=== PATIENT | female | born 1975 | race Two or more races ===

== ENCOUNTER 2021-06-11 14:33 | Emergency (ER) | payer SELFPAY ==
[2021-06-11] MEDS ORDERED: Sodium Chloride 0.9% 1,000 ML IV ONE (14:51)
[2021-06-11] MEDS ORDERED: Ondansetron 4 MG/2 ML SDV IVPUSH ONE (14:52)
[2021-06-11] MEDS ORDERED: Meclizine 25 MG Tab PO ONE (14:52)
--- NOTE | 2021-06-11 14:53 | EDM.PDOC ---
ED HPI GENERAL MEDICAL PROBLEM - General Chief Complaint: General Stated Complaint: VOMITING, DIZZY Time Seen by Provider: 06/11/21 14:34 Source of Information: Reports: Patient History Limitations: Reports: No Limitations - History of Present Illness INITIAL COMMENTS - FREE TEXT/NARRATIVE: HISTORY AND PHYSICAL: History of present illness: Patient is a 45-year-old female who presents to the emergency room with concern of sudden onset dizziness that occurred approximately 1 hour prior to travel to the emergency room. Patient is primarily speaking and did offer Martti translation, however, she prefers her friend who is at bedside for translation. Patient was cooking when she began feeling dizzy and like the room was spinning. Patient states that she then became nauseous and vomited twice. Patient states she has improvement of her symptoms with her eyes closed and has had a hard time walking due to the dizziness and feeling like the ground is moving underneath her. Patient denies any health history and states this has never occurred before. Patient denies any head injury or loss of consciousness. Patient denies any other symptoms or concerns. Patient denies fever, chills, chest pain, shortness of breath, or cough. Denies headache, neck stiff ness, change in vision, syncope, or near syncope. Denies nausea, vomiting, abdominal pain, diarrhea, constipation, or dysuria. Has not noted any blood in urine or stool. Patient has been eating and drinking appropriately. Review of systems: As per history of present illness and below otherwise all systems reviewed and negative. Past medical history: As per history of present illness and as reviewed below otherwise noncontributory. Surgical history: As per history of present illness and as reviewed below otherwise noncontributory. Social history: See social history for further information Family history: As per history of present illness and as reviewed below otherwise noncontributory. Physical exam: General: Patient is alert, oriented, and in no acute distress. Patient laying comfortably on exam table. Vitals stable and reviewed by me. HEENT: Patient does not have any nystagmus on exam, head impulse test is abnormal to the right, and test of skew shows no skew deviation. Otherwise, atraumatic, normocephalic, pupils equal and reactive bilaterally, negative for conjunctival pallor or scleral icterus, mucous membranes moist, TMs normal bilaterally, throat clear, neck supple, nontender, trachea midline. No drooling or trismus noted. No meningeal signs. No hot potato voice noted. Lungs: Clear to auscultation, breath sounds equal bilaterally, chest nontender. Heart: S1S2, regular rate and rhythm without overt murmur Abdomen: Soft, nondistended, nontender. Negative for masses or hepatosplenomegaly. Negative for costovertebral tenderness. Pelvis: Stable nontender. Genitourinary: Deferred. Rectal: Deferred. Skin: Intact, warm, dry. No lesions or rashes noted. Extremities: Atraumatic, negative for cords or calf pain. Neurovascular unremarkable. Neuro: Awake, alert, oriented. Cranial nerves II through XII unremarkable. Cerebellum unremarkable. Motor and sensory unremarkable throughout. Exam nonfocal. Notes: Dr. Varela verbally involved in patient care. Patient is a 45-year-old female who presents emergency room today with concern of sudden onset dizziness and feeling like the room is spinning 1 hour prior to arrival to the emergency room associated with nausea and vomiting. Upon arrival to the ED, patient is vitally stable and laying comfortably on exam. However, patient is unable to sit up or walk without assistance due to falling over. On exam, patient does not have any notable nystagmus, head impulse test is abnormal to the right, and test of skew shows no deviation although do feel that physical exam was limited due to patient cooperation and non diagnostic. Will obtain cardiac evaluation, Ang head/neck w contrast. See Dr. Edouard dictation for specific EKg interpretation. However, NSR without STEMI. CBC shows a mild leukocytosis of 11.1 with remainder of mild derangements of CBC unremarkable. CMP shows an isolated elevation of BUN at 19, glucose elevation of 145, otherwise mild derangements of CMP are unremarkable. Troponin is negative. TSH is within normal limits. hCG negative. Urinalysis is clear of infection. Chest x-ray shows no acute cardiopulmonary findings. Angiography head and neck shows no intracranial proximal large vessel occlusion or flow limiting luminal stenosis. Patent cervical arterial vasculature without hemodynamic significant luminal stenosis. Stenosis of bilateral distal transverse sinuses which may be seen in the setting of underlying idiopathic intracranial hypertension. If clinically indicated, lumbar puncture with opening pressure could be performed and if the patient has symptoms related to idiopathic intracranial hypertension (papilledema/double vision, headaches, pulsatile tinnitus) consult with neuro interventional services can be arranged at their facility. Upon reevaluation of patient, she remains vitally stable and has complete resolution of her dizziness/vertigo today in the emergency room with therapeutics. Upon reevaluation of patient, she is able to get up and walk around without difficulty or assistance and is well-appearing. I did discuss all findings/incidental findings today of imaging with patient and she declines any visual changes, headaches, pulsatile tinnitus, or any additional symptoms of idiopathic intracranial hypertension. I did perform a bedside visual acuity which is intact with visual poon intact and do not appreciate papilledema on exam. Patient does note that she did have some ear pressure when her symptoms first began in her right ear. Her TMs are clear on exam without sign of infection. She does not express any continuing ear pressure. Given patient's improvement/resolution of vertigo symptoms with meclizine today in the emergency room, patient's HINTS test reassuring for peripheral vertigo, and predromal ear pressure, patient symptoms more related to likely benign vertigo/possible labyrinthitis. I did discuss this with Dr. Burgess who agreeable with patient disposition. Strict return precautions thoroughly discussed with patient. Discussed importance for follow-up with her primary care provider and to receive a formal eye exam with an executive director of marketing. Voices understanding and is agreeable to plan of care. Denies any further questions or concerns at this time. Diagnostics: EKG, CBC, CMP, UA, serum hcg, CXR, Trop, Mg, TSH, Ang head/neck Therapeutics: NS, Zofran, Meclizine Prescription: Meclizine Impression: Vertigo Plan: 1. Take medication as prescribed. 2. Follow-up and establish care with a primary care provider as well as receive a formal eye exam by an executive director of marketing as discussed. The numbers have been provided above for you to call and establish an appointment time. 3. Return to the ED as needed and as discussed. Definitive disposition and diagnosis as appropriate pending reevaluation and review of above. - Related Data Allergies Allergy/AdvReac Type Severity Reaction Status Date / Time No Known Allergies Allergy Verified 06/11/21 14:39 Home Meds: Home Meds Meclizine [Antivert] 25 mg PO Q6H PRN #15 tab 06/11/21 [Rx] ED ROS GENERAL - Review of Systems Review Of Systems: Comprehensive ROS is negative, except as noted in HPI. ED EXAM, GENERAL - Physical Exam Exam: See Below (see dictation) Course - Vital Signs Last Recorded V/S: Last Vital Signs Temp 97.5 F 06/11/21 19:22 Pulse 87 06/11/21 19:22 Resp 20 06/11/21 19:22 BP 127/78 06/11/21 19:22 Pulse Ox 99 06/11/21 19:22 - Orders/Labs/Meds Labs: Laboratory Tests 06/11/21 06/11/21 06/11/21 Range/Units 14:45 14:45 14:45 WBC 11.10 H (4.0-11.0) K/uL RBC 5.06 (4.30-5.90) M/uL Hgb 14.7 (12.0-16.0) g/dL Hct 43.1 (36.0-46.0) % MCV 85.2 (80.0-98.0) fL MCH 29.1 (27.0-32.0) pg MCHC 34.1 (31.0-37.0) g/dL RDW Std Deviation 43.7 (28.0-62.0) fl RDW Coeff of Diamond 14 (11.0-15.0) % Plt Count 278 (150-400) K/uL MPV 9.80 (7.40-12.00) fL Neut % (Auto) 63.0 (48.0-80.0) % Lymph % (Auto) 28.6 (16.0-40.0) % [place] % (Auto) 6.5 (0.0-15.0) % Eos % (Auto) 1.4 (0.0-7.0) % Baso % (Auto) 0.5 (0.0-1.5) % Neut # (Auto) 7.0 H (1.4-5.7) K/uL Lymph # (Auto) 3.2 H (0.6-2.4) K/uL [place] # (Auto) 0.7 (0.0-0.8) K/uL Eos # (Auto) 0.2 (0.0-0.7) K/uL Baso # (Auto) 0.1 (0.0-0.1) K/uL Nucleated RBC % 0.0 /100WBC Nucleated RBCs # 0 K/uL Sodium 139 (136-145) mmol/L Potassium 3.6 (3.5-5.1) mmol/L Chloride 102 (98-107) mmol/L Carbon Dioxide 26.8 (21.0-32.0) mmol/L BUN 19 H (7.0-18.0) mg/dL Creatinine 1.0 (0.6-1.0) mg/dL Est Cr Clr Drug Dosing 64.60 mL/min Estimated GFR (MDRD) > 60.0 ml/min Glucose 145 H (74-106) mg/dL Calcium 8.5 (8.5-10.1) mg/dL Magnesium 2.1 (1.8-2.4) mg/dL Total Bilirubin 0.3 (0.2-1.0) mg/dL AST 12 L (15-37) IU/L ALT 10 L (14-63) IU/L Alkaline Phosphatase 80 (46-116) U/L Troponin I < 0.050 (0.000-0.056) ng/mL Total Protein 7.5 (6.4-8.2) g/dL Albumin 3.9 (3.4-5.0) g/dL Globulin 3.6 (2.6-4.0) g/dL Albumin/Globulin Ratio 1.1 (0.9-1.6) TSH, Ultra Sensitive 1.51 (0.36-3.74) uIU/mL HCG, Qual NEGATIVE (NEG) Urine Color Urine Appearance Urine pH (5.0-8.0) Ur Specific [place] (1.001-1.035) Urine Protein (NEGATIVE) mg/dL Urine Glucose (UA) (NEGATIVE) mg/dL Urine Ketones (NEGATIVE) mg/dL Urine Occult Blood (NEGATIVE) Urine Nitrite (NEGATIVE) Urine Bilirubin (NEGATIVE) Urine Urobilinogen (<2.0) EU/dL Ur Leukocyte Esterase (NEGATIVE) Urine RBC (0-2/HPF) Urine WBC (0-5/HPF) Ur Epithelial Cells (NONE-FEW) Urine Bacteria (NEGATIVE) Urine Mucus (NONE-MOD) 06/11/21 Range/Units 18:00 WBC (4.0-11.0) K/uL RBC (4.30-5.90) M/uL Hgb (12.0-16.0) g/dL Hct (36.0-46.0) % MCV (80.0-98.0) fL MCH (27.0-32.0) pg MCHC (31.0-37.0) g/dL RDW Std Deviation (28.0-62.0) fl RDW Coeff of Diamond (11.0-15.0) % Plt Count (150-400) K/uL MPV (7.40-12.00) fL Neut % (Auto) (48.0-80.0) % Lymph % (Auto) (16.0-40.0) % [place] % (Auto) (0.0-15.0) % Eos % (Auto) (0.0-7.0) % Baso % (Auto) (0.0-1.5) % Neut # (Auto) (1.4-5.7) K/uL Lymph # (Auto) (0.6-2.4) K/uL [place] # (Auto) (0.0-0.8) K/uL Eos # (Auto) (0.0-0.7) K/uL Baso # (Auto) (0.0-0.1) K/uL Nucleated RBC % /100WBC Nucleated RBCs # K/uL Sodium (136-145) mmol/L Potassium (3.5-5.1) mmol/L Chloride (98-107) mmol/L Carbon Dioxide (21.0-32.0) mmol/L BUN (7.0-18.0) mg/dL Creatinine (0.6-1.0) mg/dL Est Cr Clr Drug Dosing mL/min Estimated GFR (MDRD) ml/min Glucose (74-106) mg/dL Calcium (8.5-10.1) mg/dL Magnesium (1.8-2.4) mg/dL Total Bilirubin (0.2-1.0) mg/dL AST (15-37) IU/L ALT (14-63) IU/L Alkaline Phosphatase (46-116) U/L Troponin I (0.000-0.056) ng/mL Total Protein (6.4-8.2) g/dL Albumin (3.4-5.0) g/dL Globulin (2.6-4.0) g/dL Albumin/Globulin Ratio (0.9-1.6) TSH, Ultra Sensitive (0.36-3.74) uIU/mL HCG, Qual (NEG) Urine Color YELLOW Urine Appearance CLEAR Urine pH 7.5 (5.0-8.0) Ur Specific [place] 1.010 (1.001-1.035) Urine Protein NEGATIVE (NEGATIVE) mg/dL Urine Glucose (UA) NEGATIVE (NEGATIVE) mg/dL Urine Ketones NEGATIVE (NEGATIVE) mg/dL Urine Occult Blood TRACE-INTACT H (NEGATIVE) Urine Nitrite NEGATIVE (NEGATIVE) Urine Bilirubin NEGATIVE (NEGATIVE) Urine Urobilinogen 0.2 (<2.0) EU/dL Ur Leukocyte Esterase NEGATIVE (NEGATIVE) Urine RBC 0-1 (0-2/HPF) Urine WBC 0-1 (0-5/HPF) Ur Epithelial Cells OCCASIONAL (NONE-FEW) Urine Bacteria FEW (NEGATIVE) Urine Mucus LIGHT (NONE-MOD) Meds: Medications Discontinued Medications Generic Name Dose Route Start Last Admin Trade Name Freq PRN Reason Stop Dose Admin Sodium Chloride 1,000 mls @ 999 mls/hr 06/11/21 14:51 06/11/21 14:59 Normal Saline IV 06/11/21 15:51 999 mls/hr BOLUS ONE Administration Iopamidol 100 ml 06/11/21 16:46 06/11/21 16:47 Iopamidol 755 Mg/Ml 500 Ml Multipack Bottle IVPUSH 06/11/21 16:47 100 ml ONETIME ONE Administration Meclizine HCl 25 mg 06/11/21 14:52 06/11/21 14:59 Meclizine 25 Mg Tab PO 06/11/21 14:53 25 mg ONETIME ONE Administration Ondansetron HCl 4 mg 06/11/21 14:52 06/11/21 14:59 Ondansetron 4 Mg/2 Ml Sdv IVPUSH 06/11/21 14:53 4 mg ONETIME ONE Administration Departure - Departure Time of Disposition: 18:54 Disposition: Home, Self-Care 01 Clinical Impression: Vertigo - Discharge Information Prescriptions: Meclizine [Antivert] 25 mg PO Q6H PRN #15 tab PRN Reason: Dizziness Instructions: Vertigo, [id number] Referrals: [facility] [Outside] Forms: ED Department Discharge Additional Instructions: The following information is given to patients seen in the emergency department who are being discharged to home. This information is to outline your options for follow-up care. We provide all patients seen in our emergency department with a follow-up referral. The need for follow-up, as well as the timing and circumstances, are variable depending upon the specifics of your emergency department visit. If you don't have a primary care physician on staff, we will provide you with a referral. We always advise you to contact your personal physician following an emergency department visit to inform them of the circumstance of the visit and for follow-up with them and/or the need for any referrals to a consulting specialist. The emergency department will also refer you to a specialist when appropriate. This referral assures that you have the opportunity for follow-up care with a specialist. All of these measure are taken in an effort to provide you with optimal care, which includes your follow-up. Under all circumstances we always encourage you to contact your private physician who remains a resource for coordinating your care. When calling for follow-up care, please make the office aware that this follow-up is from your recent emergency room visit. If for any reason you are refused follow-up, please contact the [facility] Emergency Department at and asked to speak to the emergency department charge nurse. [facility] [address] [place] [address] [facility] [address] [place] [id number] [facility] [place] [facility] [address] , [address], [place] [address] 1. Take medication as prescribed. 2. Follow-up and establish care with a primary care provider as well as receive a formal eye exam by an executive director of marketing as discussed. The numbers have been provided above for you to call and establish an appointment time. 3. Return to the ED as needed and as discussed. Sepsis Event Note (ED) - Evaluation Sepsis Screening Result: No Definite Risk
--- NOTE | 2021-06-11 15:02 | PCM.EKG ---
#1 Interpretation Time: 14:38 EKG Interpretation Comments: 65, normal sinus rhythm, nonspecific ST/T findings
[2021-06-11 15:23] LABS: BLOOD UREA NITROGEN,BUN 19 mg/dL (7.0-18.0); CARBON DIOXIDE,CO2 26.8 mmol/L (21.0-32.0); CHLORIDE,CL 102 mmol/L (98-107); GLUCOSE RANDOM 145 mg/dL (74-106); POTASSIUM,K 3.6 mmol/L (3.5-5.1); SODIUM,NA 139 mmol/L (136-145)
--- NOTE | 2021-06-11 16:01 | CR ---
INDICATION: Dizziness. TECHNIQUE: Chest 1 view. COMPARISON: None. FINDINGS: No focal consolidation, pleural effusion, or pneumothorax. Normal heart size and pulmonary vascularity. Mild elevation of the left hemidiaphragm. The bones are unremarkable. IMPRESSION: No acute cardiopulmonary findings. Dictated by Misti Harris MD @ 06/11/2021 3:59:[address] Misti Harris @ Jun 11 2021 3:59PM
[2021-06-11] MEDS ORDERED: Iopamidol 755 MG/ML 500 ML Multipack Bottle IVPUSH ONE (16:46)
--- NOTE | 2021-06-11 18:12 | CT ---
DATE: 06/11/2021. CLINICAL HISTORY: Patient with dizziness, unable to walk for several hours. TECHNIQUE: Standard helical CT image acquisition through the head and neck after intravenous contrast bolus enhancement was performed. Multiplanar reconstructed images performed on a separate workstation. COMPARISON: None available. FINDINGS: The origins of the great vessels from the aortic arch are patent. The origins of the right and left vertebral arteries are patent. The common carotid arteries are patent. No significant stenoses at the origins of the proximal internal carotid arteries by NASCET criteria. The more distal cervical segments of the internal carotid arteries are patent. The cervical segments of the vertebral arteries are patent. No intracranial proximal large vessel occlusion or flow-limiting luminal stenosis. There are apparent stenoses of the bilateral distal transverse/proximal sigmoid sinuses which can be seen in the setting of underlying idiopathic intracranial hypertension. The visualized lung apices are unremarkable. The thyroid gland is unremarkable. The cervical spine is unremarkable. IMPRESSION: 1. No intracranial proximal large vessel occlusion or flow limiting luminal stenosis. 2. Patent cervical arterial vasculature without hemodynamically significant luminal stenosis. 3. Stenoses of the bilateral distal transverse sinuses which can be seen in the setting of underlying idiopathic intracranial hypertension. If clinically indicated, lumbar puncture with opening pressure could be performed and if the patient has symptoms related to idiopathic intracranial hypertension (i.e. Papilledema/double vision, headaches, pulsatile tinnitus, etc.), consultation with our Neurointerventional service at [facility] can be arranged by calling [phone] to schedule a telehealth appointment to discuss possible venous manometry and cerebral venography and potential venous sinus stenting. Please note that all CT scans at this facility use dose modulation, iterative reconstruction, and/or weight-based dosing when appropriate to reduce radiation dose to as low as reasonably achievable. Dictated by Al Person MD @ 06/11/2021 6:12:[address] Al Person @ Jun 11 2021 6:12PM
--- NOTE | 2021-06-11 18:14 | CT ---
DATE: 06/11/2021. CLINICAL HISTORY: Patient with dizziness, unable to walk for several hours. TECHNIQUE: Standard helical CT image acquisition through the head and neck after intravenous contrast bolus enhancement was performed. Multiplanar reconstructed images performed on a separate workstation. COMPARISON: None available. FINDINGS: The origins of the great vessels from the aortic arch are patent. The origins of the right and left vertebral arteries are patent. The common carotid arteries are patent. No significant stenoses at the origins of the proximal internal carotid arteries by NASCET criteria. The more distal cervical segments of the internal carotid arteries are patent. The cervical segments of the vertebral arteries are patent. No intracranial proximal large vessel occlusion or flow-limiting luminal stenosis. There are apparent stenoses of the bilateral distal transverse/proximal sigmoid sinuses which can be seen in the setting of underlying idiopathic intracranial hypertension. The visualized lung apices are unremarkable. The thyroid gland is unremarkable. The cervical spine is unremarkable. IMPRESSION: 1. No intracranial proximal large vessel occlusion or flow limiting luminal stenosis. 2. Patent cervical arterial vasculature without hemodynamically significant luminal stenosis. 3. Stenoses of the bilateral distal transverse sinuses which can be seen in the setting of underlying idiopathic intracranial hypertension. If clinically indicated, lumbar puncture with opening pressure could be performed and if the patient has symptoms related to idiopathic intracranial hypertension (i.e. Papilledema/double vision, headaches, pulsatile tinnitus, etc.), consultation with our Neurointerventional service at [facility] can be arranged by calling [phone] to schedule a telehealth appointment to discuss possible venous manometry and cerebral venography and potential venous sinus stenting. Please note that all CT scans at this facility use dose modulation, iterative reconstruction, and/or weight-based dosing when appropriate to reduce radiation dose to as low as reasonably achievable. Dictated by Al Person MD @ 06/11/2021 6:12:[address] Al Person @ Jun 11 2021 6:12PM
== END 2021-06-11 19:24 | disposition home or self-care (01) ==
LOC: MW.ED 14:33
DX: R42 Dizziness and giddiness (principal)
CPT/HCPCS: 36415; 70496; 70498; 71045; 80053; 81001; 83735; 84443; 84484; 84703; 85025; 93005; 96374; 99284; A9270; J2405; J7030; Q9967; 93010

== ENCOUNTER 2023-12-20 23:11 | Emergency (ER) | payer MEDICAID, OTHER ==
[2023-12-20 23:34] LABS: BASOPHILS ABSOLUTE AUTO 0.03 K/uL (0.00-0.20); BASOPHILS PERCENT AUTO 0.3 % (0.0-1.0); EOSINOPHILS ABSOLUTE AUTO 0.07 K/uL (0.00-0.45); EOSINOPHILS PERCENT AUTO 0.7 % (0.0-6.0); HEMATOCRIT 41.8 % (37.0-47.0); HEMOGLOBIN 14.3 g/dL (12.0-16.0); IMMATURE GRAN ABSOLUTE AUTO 0.04 K/uL (0.00-0.05); IMMATURE GRAN PERCENT AUTO 0.4 % (0.0-0.4); LYMPHOCYTES ABSOLUTE AUTO 0.92 K/uL (1.00-4.80); LYMPHOCYTES PERCENT AUTO 9.3 % (24.0-44.0); MEAN CORPUSCULAR HEMOGLOBIN 29.3 pg (28.0-32.0); MEAN CORPUSCULAR HGB CONC 34.2 g/dL (32.0-36.0); MEAN CORPUSCULAR VOLUME 85.7 fL (83.0-99.0); MEAN PLATELET VOLUME 9.2 fL (9.4-12.3); MONOCYTES ABSOLUTE AUTO 0.59 K/uL (0.00-0.80); NEUTROPHILS ABSOLUTE AUTO 8.22 K/uL (1.80-7.70); NEUTROPHILS PERCENT AUTO 83.3 % (41.0-71.0); PLATELET COUNT,PLT 254 K/uL (150-400); RED BLOOD CELL COUNT 4.88 M/uL (4.10-5.30); WHITE BLOOD CELL COUNT,WBC 9.87 K/uL (3.9-11.3)
[2023-12-20] MEDS: diphenhydrAMINE 50 MG/ML SDV IVPUSH ONE (23:34)
[2023-12-20] MEDS: Sodium Chloride 0.9% 1,000 ML IV ONE (23:34)
[2023-12-20] MEDS: Famotidine 20 MG/2 ML SDV IVPUSH ONE (23:35)
[2023-12-20] MEDS: Dexamethasone 10 MG/ML SDV IVPUSH ONE (23:35)
[2023-12-20] MEDS: Sodium Chloride 0.9% 10 ML Syringe FLUSH PRN (23:35)
[2023-12-20] MEDS: Sodium Chloride 0.9% 2.5 ML Syringe FLUSH PRN (23:35)
[2023-12-20 23:50] LABS: CALCIUM 8.7 mg/dL (8.5-10.1); CARBON DIOXIDE,CO2 22.7 mmol/L (21.0-32.0); CREATININE 0.8 mg/dL (0.6-1.0); EST CRCL DRUG DOSING (CG) 75.07 mL/min; POTASSIUM,K 3.7 mmol/L (3.5-5.1)
== END 2023-12-21 00:40 | disposition home or self-care (01) ==
LOC: MW.ED 23:11
DX: L50.9 Urticaria, unspecified (principal); E11.9 Type 2 diabetes mellitus without complications
CPT/HCPCS: 36415; 80048; 85025; 96374; 96375; 99283; J1200; J3490; J7030; 99284; J1100

== ENCOUNTER 2023-12-22 10:54 | Emergency (ER) | payer OTHER, MEDICAID | END 2023-12-22 11:20 | disposition left against medical advice (07) | LOC: MW.ED 10:54 | DX: Z53.21 Procedure and treatment not carried out due to patient leaving prior to being seen by health care provider (principal) ==